=== PATIENT | male | born 1985 | race American Indian/Alaskan Native ===

== ENCOUNTER 2017-03-31 14:34 | Emergency (ER) | payer MEDICAID ==
[2017-03-31] MEDS ORDERED: Sodium Chloride 0.9% 10 ML Syringe FLUSH PRN (15:09)
[2017-03-31] MEDS ORDERED: Ondansetron 4 MG/2 ML SDV IVPUSH ONE (15:09)
[2017-03-31] MEDS ORDERED: fentaNYL 100 MCG/2 ML SDV IVPUSH ONE (15:09)
--- NOTE | 2017-03-31 15:13 | EDM.PDOC ---
ED HPI GENERAL MEDICAL PROBLEM - General Chief Complaint: Upper Extremity Injury/Pain Stated Complaint: Shoulder pain Time Seen by Provider: 03/31/17 15:00 Source of Information: Reports: Patient, RN Notes Reviewed History Limitations: Reports: No Limitations - History of Present Illness INITIAL COMMENTS - FREE TEXT/NARRATIVE: 32 year old male presents to the ED with left shoulder pain. He tripped and caught himself with his left arm. He felt a popping sensation to his left shoulder. He's dislocated this shoulder in the past and he says it feels the same way. He reports some tingling to his fingers. He's also had surgery on this shoulder in the past. He last ate around 10am. Left Shoulder Pain Score (Numeric/FACES): 10 - Related Data Allergies Allergy/AdvReac Type Severity Reaction Status Date / Time codeine Allergy Swelling Verified 03/31/17 14:54 ketorolac [From Toradol] Allergy Itching Verified 03/31/17 14:54 Home Meds: Home Meds Albuterol [Proventil HFA] 2 puff INH QID PRN #1 inhaler 03/31/17 [Rx] Albuterol [Ventolin Syrup 2 MG/5 ML] 1 dose INH DAILY PRN 03/31/17 [History] Gabapentin [Neurontin] 800 mg PO QID #20 tablet 03/31/17 [Rx] Gabapentin [Neurontin] 800 mg PO TID 03/31/17 [History] cloNIDine HCl [Catapres] 0.2 mg PO BEDTIME #5 tablet 03/31/17 [Rx] cloNIDine [Catapres] 0.5 mg PO DAILY 03/31/17 [History] oxyCODONE HCl/Acetaminophen [Percocet 5-325 mg Tablet] 1 each PO Q6H PRN #20 tablet 03/31/17 [Rx] Past Medical History Cardiovascular History: Reports: Hypertension Respiratory History: Reports: Asthma Psychiatric History: Reports: Anxiety, Depression - Past Surgical History Respiratory Surgical History: Reports: None Social & Family History - Tobacco Use Smoking Status *Q: Never Smoker Second Hand Smoke Exposure: No - Caffeine Use Caffeine Use: Reports: Coffee - Recreational Drug Use Recreational Drug Use: No Review of Systems - Review of Systems Review Of Systems: See Below Musculoskeletal: Reports: Shoulder Pain, Joint Swelling Skin: Reports: No Symptoms Neurological: Reports: Numbness, Tingling. Denies: Weakness ED EXAM, GENERAL - Physical Exam Exam: See Below Exam Limited By: No Limitations General Appearance: Alert, WD/WN, Moderate Distress Respiratory/Chest: No Respiratory Distress, Lungs Clear Cardiovascular: Regular Rate, Rhythm Extremities: Joint Swelling, Other (pain to left shoulder with palpation. mild swelling noted. CMS intact distally. Patient is guarded and unwilling to move left shoulder. ) Neurological: Alert, Normal Cognition, No Motor/Sensory Deficits Skin Exam: Warm, Dry, Intact Course - Vital Signs Last Recorded V/S: Last Vital Signs Temp 97.6 F 03/31/17 14:52 Pulse 93 03/31/17 14:52 Resp 20 03/31/17 14:52 BP 134/88 03/31/17 14:52 Pulse Ox 98 03/31/17 14:52 - Orders/Labs/Meds Orders: Active Orders 24 hr Category Date Time Status Peripheral IV Care [RC] . DIRECTED Care 03/31/17 15:10 Active Shoulder Comp Lt [CR] Stat Exams 03/31/17 15:09 Taken Sodium Chloride 0.9% [Saline Flush] Med 03/31/17 15:09 Active 10 ml FLUSH ASDIRECTED PRN Peripheral IV Insertion Adult [OM.PC] Stat Oth 03/31/17 15:09 Ordered Medication Orders Sodium Chloride (Saline Flush) 10 ml FLUSH ASDIRECTED PRN PRN Reason: Keep Vein Open Last Admin: 03/31/17 15:22 Dose: 10 ml Meds: Medications Generic Name Dose Route Start Last Admin Trade Name Freq PRN Reason Stop Dose Admin Sodium Chloride 10 ml 03/31/17 15:09 03/31/17 15:22 Saline Flush FLUSH 10 ml ASDIRECTED PRN Administration Keep Vein Open Discontinued Medications Generic Name Dose Route Start Last Admin Trade Name Freq PRN Reason Stop Dose Admin Fentanyl 50 mcg 03/31/17 15:09 03/31/17 15:18 Sublimaze IVPUSH 03/31/17 15:10 50 mcg ONETIME ONE Administration Hydromorphone HCl 1 mg 03/31/17 16:02 Dilaudid IVPUSH 03/31/17 16:03 ONETIME ONE Ondansetron HCl 4 mg 03/31/17 15:09 03/31/17 15:17 Zofran IVPUSH 03/31/17 15:10 4 mg ONETIME ONE Administration - Re-Assessments/Exams Free Text/Narrative Re-Assessment/Exam: Xray reviewed with Dr. Salinas. No bony abnormality or dislocation appreciated. Patient will be placed in a sling and instructed to f/u with Dr. Kitchen this week. Prescription provided for Percocet. The patient is also requesting refills of his home medications. He is requesting Albuterol inhaler, gabapentin 800mg PO QID, and Clonidine 0.2mg at bedtime. He is in town working and forgot his prescriptions. I reviewed the [place] [facility] Drug registry. He had 120 gabapentin filled on 03/25/17. He will be given small refills for his meds. He is from out of town but said his is bringing his medications from home. He was instructed to f/u in the clinic if he needs additional refills. Departure - Departure Time of Disposition: 16:02 Disposition: Home, Self-Care 01 Condition: Good Clinical Impression: Medication refill Shoulder injury Qualifiers: Encounter type: initial encounter Laterality: left Qualified Code(s): S49.92XA - Unspecified injury of left shoulder and upper arm, initial encounter - Discharge Information Prescriptions: Albuterol [Proventil HFA] 2 puff INH QID PRN #1 inhaler PRN Reason: Cough Gabapentin [Neurontin] 800 mg PO QID #20 tablet cloNIDine HCl [Catapres] 0.2 mg PO BEDTIME #5 tablet oxyCODONE HCl/Acetaminophen [Percocet 5-325 mg Tablet] 1 each PO Q6H PRN #20 tablet PRN Reason: Pain Referrals: PCP,None [Primary Care Provider] - Forms: ED Department Discharge, ED Return to Work/School Form Additional Instructions: Rest and ice your shoulder Sling as tolerated Follow-up with Dr. Kitchen on or Friday of this week. Call [phone] to schedule. You were given a 5 day supply of your home medications. Follow-up in our clinic if you need additional refills of your medications. Call [phone] to schedule. We have same and next day appointments available. - My Orders Last 24 Hours: My Active Orders 03/31/17 15:09 Shoulder Comp Lt [CR] Stat Sodium Chloride 0.9% [Saline Flush] 10 ml FLUSH ASDIRECTED PRN Peripheral IV Insertion Adult [OM.PC] Stat 03/31/17 15:10 Peripheral IV Care [RC] . DIRECTED - Assessment/Plan Last 24 Hours: My Active Orders 03/31/17 15:09 Shoulder Comp Lt [CR] Stat Sodium Chloride 0.9% [Saline Flush] 10 ml FLUSH ASDIRECTED PRN Peripheral IV Insertion Adult [OM.PC] Stat 03/31/17 15:10 Peripheral IV Care [RC] . DIRECTED
[2017-03-31] MEDS ORDERED: HYDROmorphone 1 MG/ML Syringe IVPUSH ONE (16:02)
--- NOTE | 2017-04-03 10:46 | CR ---
Left shoulder: Three views of the left shoulder were obtained. Slight ossification is noted within the coracoclavicular ligament. Glenohumeral joint is unremarkable. No acute fracture, dislocation or other bony abnormality is appreciated. Impression: 1. Incidental findings. Nothing acute is appreciated on three-view left shoulder study. Diagnostic code #2
== END 2017-03-31 16:41 | disposition home or self-care (01) ==
LOC: MERGE 14:34 → JD.ED 14:34
DX: S49.92XA Unspecified injury of left shoulder and upper arm, initial encounter (principal); Z76.0 Encounter for issue of repeat prescription; I10 Essential (primary) hypertension; J45.909 Unspecified asthma, uncomplicated; F41.9 Anxiety disorder, unspecified; F32.9 Major depressive disorder, single episode, unspecified; Z79.899 Other long term (current) drug therapy; Z88.5 Allergy status to narcotic agent; Z88.6 Allergy status to analgesic agent; W18.40XA Slipping, tripping and stumbling without falling, unspecified, initial encounter
CPT/HCPCS: 73030; 96374; 96375; 99284; J1170; J2405; J3010; J7050; 99283

== ENCOUNTER 2017-04-02 15:49 | Emergency (ER) | payer MEDICAID ==
[2017-04-02] MEDS ORDERED: Sodium Chloride 0.9% 10 ML Syringe FLUSH PRN (16:03)
[2017-04-02] MEDS ORDERED: HYDROmorphone 0.5 MG/0.5 ML Syringe IVPUSH ONE (16:03)
--- NOTE | 2017-04-02 16:09 | EDM.PDOC ---
ED HPI GENERAL MEDICAL PROBLEM - General Chief Complaint: Upper Extremity Injury/Pain Stated Complaint: LT SHOULDER INJURY Time Seen by Provider: 04/02/17 16:00 Source of Information: Reports: Patient History Limitations: Reports: No Limitations - History of Present Illness INITIAL COMMENTS - FREE TEXT/NARRATIVE: Patient is a 32-year-old male who presents to the ED complaining of left shoulder pain. Patient states on Friday night he was walking up a set of stairs and fell forward. He attempted to catch himself when doing so dislocated his left shoulder. Shoulder reduced on its own. He did present to the ED and received pain medications. States upon waking up this morning the Velcro broke to the shoulder immobilizer thus with movement caused left shoulder to dislocate again. He presented to the walk-in clinic to which x-rays were obtained revealing a dislocated left shoulder. This was reviewed by Dr. Kitchen to which he requested patient come to the ED to have it reduced. Last time the patient ate was at noon today. It was a light meal. Patient did take a Percocet tablet 11:00 for discomfort. Patient does have a history of rotator cuff tear to left shoulder surgically repaired 3 years ago. Patient has no numbness or tingling. Pain is localized. Left Shoulder Pain Score (Numeric/FACES): 9 - Related Data Allergies Allergy/AdvReac Type Severity Reaction Status Date / Time codeine Allergy Swelling Verified 04/02/17 16:02 ketorolac [From Toradol] Allergy Itching Verified 04/02/17 16:02 Home Meds: Home Meds Albuterol [Proventil HFA] 2 puff INH QID PRN #1 inhaler 03/31/17 [Rx] Albuterol [Ventolin Syrup 2 MG/5 ML] 1 dose INH DAILY PRN 03/31/17 [History] Gabapentin [Neurontin] 800 mg PO QID #20 tablet 03/31/17 [Rx] Gabapentin [Neurontin] 800 mg PO TID 03/31/17 [History] cloNIDine HCl [Catapres] 0.2 mg PO BEDTIME #5 tablet 03/31/17 [Rx] cloNIDine [Catapres] 0.5 mg PO DAILY 03/31/17 [History] oxyCODONE HCl/Acetaminophen [Percocet 5-325 mg Tablet] 1 each PO Q6H PRN #20 tablet 03/31/17 [Rx] Past Medical History Cardiovascular History: Reports: Hypertension Respiratory History: Reports: Asthma Psychiatric History: Reports: Anxiety, Depression - Past Surgical History Respiratory Surgical History: Reports: None Social & Family History - Tobacco Use Smoking Status *Q: Current Every Day Smoker Years of Tobacco use: 3 Packs/Tins Daily: 0.5 Second Hand Smoke Exposure: No - Caffeine Use Caffeine Use: Reports: Coffee, Energy Drinks, Soda - Recreational Drug Use Recreational Drug Use: No Review of Systems - Review of Systems Review Of Systems: ROS reveals no pertinent complaints other than HPI. ED EXAM, GENERAL - Physical Exam Exam: See Below Exam Limited By: No Limitations General Appearance: Alert, WD/WN, Mild Distress Ears: Hearing Grossly Normal Nose: Normal Inspection Throat/Mouth: Normal Voice, No Airway Compromise Neck: Normal Inspection, Supple Respiratory/Chest: No Respiratory Distress, Lungs Clear, Normal Breath Sounds, No Accessory Muscle Use Cardiovascular: Normal Peripheral Pulses, Regular Rate, Rhythm, No Murmur Peripheral Pulses: 2+: Radial (L) Extremities: Normal Capillary Refill, Other (On evaluation of the left shoulder there is squaring off noted. Pain with palpation. Decreased range of motion secondary discomfort. No sensory motor deficits distally.) Course - Vital Signs Last Recorded V/S: Last Vital Signs Temp 97.9 F 04/02/17 15:56 Pulse 100 04/02/17 18:10 Resp 18 04/02/17 18:10 BP 132/99 H 04/02/17 18:10 Pulse Ox 97 04/02/17 18:10 - Orders/Labs/Meds Meds: Medications Discontinued Medications Generic Name Dose Route Start Last Admin Trade Name Luanq PRN Reason Stop Dose Admin Hydromorphone HCl 0.5 mg 04/02/17 16:03 04/02/17 16:21 Dilaudid IVPUSH 04/02/17 16:04 0.5 mg ONETIME ONE Administration Sodium Chloride Confirm 04/02/17 16:18 04/02/17 16:23 Normal Saline Administered 04/02/17 16:19 75 ml Dose Administration 1,000 mls @ as directed .ROUTE .STK-MED ONE Ketamine HCl Confirm 04/02/17 17:15 Ketalar Administered 04/02/17 17:16 Dose 500 mg .ROUTE .STK-MED ONE Midazolam HCl Confirm 04/02/17 17:15 Versed 1 Mg/Ml Administered 04/02/17 17:16 Dose 2 mg .ROUTE .STK-MED ONE Sodium Chloride 10 ml 04/02/17 16:03 04/02/17 16:24 Saline Flush FLUSH 10 ml ASDIRECTED PRN Administration Keep Vein Open - Re-Assessments/Exams Free Text/Narrative Re-Assessment/Exam: X-ray of the left shoulder reveals a anterior dislocation of the left shoulder. IV will be established Dilaudid 0.5 mg IVP. We'll contact anesthesia for procedural sedation. Under conscious sedation the left shoulder was reduced with no complications. Postreduction film indicated shoulder was back in proper anatomical position. Patient had no sensory motor deficits distally. This includes median, ulnar, and also radial nerve. Shoulder immobilizer was placed. Patient is ready be discharged home. Vital signs stable. Patient is back to baseline. We'll discharge patient home with instructions as documented. He will follow-up with Dr. Kitchen in the next week. Departure - Departure Time of Disposition: 17:54 Disposition: Home, Self-Care 01 Condition: Good Clinical Impression: Dislocation, shoulder, anterior Qualifiers: Encounter type: initial encounter Laterality: left Qualified Code(s): S43.015A - Anterior dislocation of left humerus, initial encounter - Discharge Information Instructions: Shoulder Pain, [id number], Cast or Splint Care, [id number], Pain Medicine Instructions, [id number], Shoulder Dislocation, [id number] Referrals: PCP,None [Primary Care Provider] - Artis Kitchen MD [Physician] - Forms: ED Department Discharge Additional Instructions: Wear the shoulder immobilizer as instructed only taking it off to shower and change clothing. Do not externally rotate or lift your arm away from your body. This will only increase your risk of dislocating your shoulder again. Apply ice to affected area as needed. Utilize Tylenol and ibuprofen in alternating fashion for pain. For severe pain not managed with the above therapies take Percocet as prescribed. No driving this evening or consuming alcohol. No driving while taking the Percocet. Follow-up with Dr. Kitchen this coming week for reevaluation. Return to the ED as needed.
[2017-04-02] MEDS ORDERED: Sodium Chloride 0.9% 1,000 ML ONE (16:18)
[2017-04-02] MEDS ORDERED: Ketamine 500 mg/10 ML MDV ONE (17:15)
[2017-04-02] MEDS ORDERED: Midazolam 1 MG/ML 2 ML SDV ONE (17:15)
--- NOTE | 2017-04-02 17:35 | PCM48HPAN ---
Post Anesthesia Note - EVALUATION WITHIN 48HRS OF ANESTHETIC Vital Signs in Normal Range: Yes Patient Participated in Evaluation: Yes Respiratory Function Stable: Yes Airway Patent: Yes Cardiovascular Function Stable: Yes Hydration Status Stable: Yes Pain Control Satisfactory: Yes Nausea and Vomiting Control Satisfactory: Yes Mental Status Recovered: Yes
--- NOTE | 2017-04-02 17:38 | PCM.PREANE ---
Preanesthetic Assessment - Procedure Proposed Procedure: L shoulder dislocation - Anesthesia/Transfusion/Family Hx Anesthesia History: Prior Anesthesia Without Reaction Family History of Anesthesia Reaction: No Transfusion History: No Prior Transfusion(s) - Review of Systems General: No Symptoms Pulmonary: Other (asthma) Cardiovascular: Other (HTN) Gastrointestinal: No Symptoms Neurological: No Symptoms Other: Reports: Anxiety - Physical Assessment NPO Status Date: 04/02/17 NPO Status Time: 13:45 (milkshake) O2 Sat by Pulse Oximetry: 100 Respiratory Rate: 18 Vital Signs: Last Vital Signs Temp 36.6 C 04/02/17 15:56 Pulse 99 04/02/17 17:32 Resp 18 04/02/17 17:32 BP 140/114 H 04/02/17 17:32 Pulse Ox 100 04/02/17 17:32 Height: 1.73 m Weight: 76.204 kg ASA Class: 2E Mental Status: Alert & Oriented x3 Airway Class: Mallampati = 1 Dentition: Reports: Normal Dentition Thyro-Mental Finger Breadths: 3 Mouth Opening Finger Breadths: 3 ROM/Head Extension: Full Lungs: Clear to Auscultation, Normal Respiratory Effort Cardiovascular: Regular Rate, Regular Rhythm - Allergies Allergies/Adverse Reactions: Allergies Allergy/AdvReac Type Severity Reaction Status Date / Time codeine Allergy Swelling Verified 04/02/17 16:02 ketorolac [From Toradol] Allergy Itching Verified 04/02/17 16:02 - Blood Blood Available: No Product(s) Available: None - Anesthesia Plan Pre-Op Medication Ordered: None - Acknowledgements Anesthesia Type Planned: MAC (with ketamine and versed. Patient is not a candidate for propofol due to npo status. ) Pt an Appropriate Candidate for the Planned Anesthesia: Yes Alternatives and Risks of Anesthesia Discussed w Pt/Guardian: Yes Pt/Guardian Understands and Agrees with Anesthesia Plan: Yes PreAnesthesia Questionnaire Cardiovascular History: Reports: Hypertension Respiratory History: Reports: Asthma Psychiatric History: Reports: Anxiety, Depression - Past Surgical History Respiratory Surgical History: Reports: None - SUBSTANCE USE Smoking Status *Q: Current Every Day Smoker Tobacco Use Within Last Twelve Months: No Second Hand Smoke Exposure: No Recreational Drug Use History: No - HOME MEDS Home Medications: Home Meds Albuterol [Proventil HFA] 2 puff INH QID PRN #1 inhaler 03/31/17 [Rx] Albuterol [Ventolin Syrup 2 MG/5 ML] 1 dose INH DAILY PRN 03/31/17 [History] Gabapentin [Neurontin] 800 mg PO QID #20 tablet 03/31/17 [Rx] Gabapentin [Neurontin] 800 mg PO TID 03/31/17 [History] cloNIDine HCl [Catapres] 0.2 mg PO BEDTIME #5 tablet 03/31/17 [Rx] cloNIDine [Catapres] 0.5 mg PO DAILY 03/31/17 [History] oxyCODONE HCl/Acetaminophen [Percocet 5-325 mg Tablet] 1 each PO Q6H PRN #20 tablet 03/31/17 [Rx] - CURRENT (IN HOUSE) MEDS Current Meds: Current Medications Sodium Chloride (Saline Flush) 10 ml FLUSH ASDIRECTED PRN PRN Reason: Keep Vein Open Last Admin: 04/02/17 16:24 Dose: 10 ml Discontinued Medications Hydromorphone HCl (Dilaudid) 0.5 mg IVPUSH ONETIME ONE Stop: 04/02/17 16:04 Last Admin: 04/02/17 16:21 Dose: 0.5 mg Sodium Chloride (Normal Saline) Confirm Administered Dose 1,000 mls @ as directed .ROUTE .STK-MED ONE Stop: 04/02/17 16:19 Last Admin: 04/02/17 16:23 Dose: 75 ml Ketamine HCl (Ketalar) Confirm Administered Dose 500 mg .ROUTE .STK-MED ONE Stop: 04/02/17 17:16 Midazolam HCl (Versed 1 Mg/Ml) Confirm Administered Dose 2 mg .ROUTE .STK-MED ONE Stop: 04/02/17 17:16
--- NOTE | 2017-04-03 10:46 | CR ---
Left shoulder: Single AP view of the left shoulder was obtained. Comparison: Previous study performed earlier on the same day (3:15 PM). Stable ossification within the coracoclavicular ligament. Glenohumeral alignment is normal. Nothing acute is seen. Impression: 1. Incidental findings. Diagnostic code #2
== END 2017-04-02 18:10 | disposition home or self-care (01) ==
LOC: JD.ED 15:49 → MERGE 15:49 → JD.ED 18:10
DX: S43.015A Anterior dislocation of left humerus, initial encounter (principal); I10 Essential (primary) hypertension; J45.909 Unspecified asthma, uncomplicated; F41.9 Anxiety disorder, unspecified; F32.9 Major depressive disorder, single episode, unspecified; F17.210 Nicotine dependence, cigarettes, uncomplicated; Z79.899 Other long term (current) drug therapy; Z88.5 Allergy status to narcotic agent; Z88.6 Allergy status to analgesic agent; W10.8XXA Fall (on) (from) other stairs and steps, initial encounter; X58.XXXA Exposure to other specified factors, initial encounter
CPT/HCPCS: 23655; 73020; 73030; 96374; 99284; J1170; J2250; J7040; J7050; 01620

== ENCOUNTER 2017-09-19 17:37 | Emergency (ER) | payer MEDICAID ==
[2017-09-19] MEDS ORDERED: Acetaminophen 325 MG Tab PO ONE (18:18)
[2017-09-19] MEDS ORDERED: Acetaminophen/oxyCODONE 325-5 MG Tab PO ONE (19:23)
--- NOTE | 2017-09-19 19:50 | EDM.PDOC ---
ED HPI GENERAL MEDICAL PROBLEM - General Chief Complaint: Upper Extremity Injury/Pain Stated Complaint: MEDICAL CLEARANCE Time Seen by Provider: 09/19/17 18:05 Source of Information: Reports: Patient History Limitations: Reports: No Limitations - History of Present Illness INITIAL COMMENTS - FREE TEXT/NARRATIVE: 32-year-old male presents with the [facility] department for evaluation treatment of a dislocated left shoulder. Patient has been charged misdemeanor is currently under arrest. He states that he was in holding. He states that he lifted his arm he felt a pop. He feels that he may dislocated the shoulder. Reports numbness and tingling to the left arm. Reports he is previously dislocated shoulder. Also previously reports he had a left rotator cuff repair. Patient is right-handed. Onset: Today Location: Reports: Lower Extremity, Left Left Shoulder Pain Score (Numeric/FACES): 9 - Related Data Allergies Allergy/AdvReac Type Severity Reaction Status Date / Time codeine Allergy Swelling Verified 09/19/17 17:44 ketorolac [From Toradol] Allergy Itching Verified 09/19/17 17:44 Home Meds: Home Meds Acetaminophen/oxyCODONE [Percocet 325-5 MG] 1 tab PO Q6HR PRN #15 tab 09/19/17 [ Rx] Albuterol [IJP: Ventolin HFA] 2 puff INH .TWICE DAILY PRN 09/19/17 [History] cloNIDine [Catapres] 0.1 mg PO BID 09/19/17 [History] hydrOXYzine HCl [Atarax] 25 mg PO TID 09/19/17 [History] Past Medical History HEENT History: Reports: None Cardiovascular History: Reports: Hypertension Respiratory History: Reports: Asthma Gastrointestinal History: Reports: None Genitourinary History: Reports: None Musculoskeletal History: Reports: Fracture Neurological History: Reports: None Psychiatric History: Reports: Anxiety, Depression Endocrine/Metabolic History: Reports: None Hematologic History: Reports: None Immunologic History: Reports: None Oncologic (Cancer) History: Reports: None Dermatologic History: Reports: None - Infectious Disease History Infectious Disease History: Reports: None - Past Surgical History HEENT Surgical History: Reports: None Respiratory Surgical History: Reports: None GI Surgical History: Reports: None Endocrine Surgical History: Reports: None Musculoskeletal Surgical History: Reports: Other (See Below) Other Musculoskeletal Surgeries/Procedures:: shoulder dislocation Social & Family History - Family History Family Medical History: Noncontributory - Tobacco Use Smoking Status *Q: Current Every Day Smoker Years of Tobacco use: 4 Packs/Tins Daily: 0.5 Second Hand Smoke Exposure: No - Caffeine Use Caffeine Use: Reports: Coffee - Recreational Drug Use Recreational Drug Use: Yes Drug Use in Last 12 Months: Yes Recreational Drug Type: Reports: Methamphetamine Recreational Drug Use Frequency: Not Used In Over 3 Months Recreational Drug Last Use: 08-27-17 Review of Systems - Review of Systems Review Of Systems: See Below Musculoskeletal: Reports: Shoulder Pain (left). Denies: Joint Swelling Skin: Denies: Bruising Neurological: Reports: Numbness (left arm), Tingling (left arm) ED EXAM, GENERAL - Physical Exam Exam: See Below Exam Limited By: No Limitations General Appearance: Alert, WD/WN, No Apparent Distress Respiratory/Chest: No Respiratory Distress, Lungs Clear, Normal Breath Sounds Cardiovascular: Normal Peripheral Pulses, Regular Rate, Rhythm, No Murmur Peripheral Pulses: 2+: Radial (L), Radial (R) Extremities: Normal Capillary Refill, Limited Range of Motion (unable/unwilling to preform left shoulder ROM due to pain), Other (deformity to the left shoulder , humerus appears to be subluxed but does not seem dislocated) Neurological: Alert, Oriented, Normal Cognition Psychiatric: Normal Affect, Normal Mood Skin Exam: Warm, Dry. No: Ecchymosis Course - Vital Signs Last Recorded V/S: Last Vital Signs Temp 36.2 C 09/19/17 17:46 Pulse 75 09/19/17 17:46 Resp 18 09/19/17 17:46 BP 127/78 09/19/17 17:46 Pulse Ox 100 09/19/17 17:46 - Orders/Labs/Meds Meds: Medications Discontinued Medications Generic Name Dose Route Start Last Admin Trade Name Freq PRN Reason Stop Dose Admin Acetaminophen 650 mg 09/19/17 18:18 09/19/17 18:26 Tylenol PO 09/19/17 18:19 650 mg NOW ONE Administration Oxycodone/Acetaminophen 2 tab 09/19/17 19:23 09/19/17 19:30 Percocet 325-5 Mg PO 09/19/17 19:24 2 tab ONETIME ONE Administration - Radiology Interpretation Free Text/Narrative:: X-ray of the left shoulder does not show a dislocation. Does show subluxed left shoulder. He likely has rotator cuff injury that requires repair. Reviewed by myself and Dr. Salinas. - Re-Assessments/Exams Free Text/Narrative Re-Assessment/Exam: 09/19/17 19:41 I reviewed the x-ray results with the patient. Will place him in a sling and swath. reports that he will likely be bonded out tonight. If not he will see a brick tester on Friday. He is complaining of worsening pain. I will give him 2 Percocets here in the ER. I wrote prescription for some pain medication should he be bonded out nights. If not he can only have Tylenol and Motrin in fpc. He is to follow-up with orthopedics. Discharge instructions as documented. Departure - Departure Time of Disposition: 19:48 Disposition: Home, Self-Care 01 Condition: Fair Clinical Impression: Left rotator cuff tear - Discharge Information Prescriptions: Acetaminophen/oxyCODONE [Percocet 325-5 MG] 1 tab PO Q6HR PRN #15 tab PRN Reason: Pain Instructions: Rotator Cuff Injury Referrals: PCP,None [Primary Care Provider] - Artis Kitchen MD [Physician] - Forms: ED Department Discharge Additional Instructions: Sling and swath on at all times. [id number] Tylenol or Motrin seen for pain relief. For pain not relieved by Tylenol Motrin may take Percocet 1-2 tabs every 4-6 hours. Percocet is habit- forming, take as few of these as needed to control your pain. Do not drive or operate machinery within 12 hours of taking Percocet. Ice the shoulder. Follow-up with orthopedics next week. Recommend Dr. Kitchen. Call [phone] to schedule with him. please return to the ER for symptoms change or worsen.
--- NOTE | 2017-09-21 17:47 | CR ---
Left shoulder: Three views of the left shoulder were obtained. Comparison: Prior left shoulder study of 04/02/17 Humeral head is minimally subluxed inferiorly in relation to the glenoid. No terry dislocation is seen. Ossification is noted within the coracoclavicular ligament off the clavicle. Mild inferior spurring is seen within the acromioclavicular joint. Mild scoliosis is noted within the spine. Impression: 1. Slightly inferior subluxed humeral head without terry dislocation. 2. Other incidental findings. Diagnostic code #3
== END 2017-09-19 20:05 | disposition home or self-care (01) ==
LOC: JD.ED 17:37 → MERGE 17:37 → JD.ED 20:05
DX: S46.012A Strain of muscle(s) and tendon(s) of the rotator cuff of left shoulder, initial encounter (principal); Z88.5 Allergy status to narcotic agent; Z88.6 Allergy status to analgesic agent; I10 Essential (primary) hypertension; J45.909 Unspecified asthma, uncomplicated; X50.9XXA Other and unspecified overexertion or strenuous movements or postures, initial encounter
CPT/HCPCS: 73030; 99284; A9270; 99283

== ENCOUNTER 2017-09-24 15:01 | Emergency (ER) | payer MEDICAID ==
[2017-09-24] MEDS ORDERED: Sodium Chloride 0.9% 10 ML Syringe FLUSH PRN (15:30)
[2017-09-24] MEDS ORDERED: Acetaminophen 325 MG Tab PO ONE (15:34)
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
[2017-09-24] MEDS ORDERED: Ibuprofen 800 MG Tab PO ONE (16:20)
--- NOTE | 2017-09-25 08:44 | CR ---
Left shoulder: Three views of the left shoulder were obtained. Comparison: Previous left shoulder studies are available, most recent is 11/03/13. Minimal spurring is noted off the acromioclavicular joint. Slight inferior subluxation of the humerus relation to the glenoid is noted. No terry dislocation is seen. Slight irregularity within the glenoid rim is seen presumably due to previous surgery. Small bony exostosis with calcification seen off the inferior clavicle within the coracoclavicular ligament which is stable and incidental. No acute fracture or other abnormality is seen. Impression: 1. Inferior subluxation without terry dislocation of the glenohumeral joint. 2. Previous shoulder surgery appears to be present. 3. No acute fracture is seen. Diagnostic code #2
== END 2017-09-24 16:39 | disposition home or self-care (01) ==
LOC: JD.ED 15:01
DX: S43.032A Inferior subluxation of left humerus, initial encounter (principal); Z88.5 Allergy status to narcotic agent; F17.210 Nicotine dependence, cigarettes, uncomplicated; X58.XXXA Exposure to other specified factors, initial encounter
CPT/HCPCS: 73030; 99283; A9270

== ENCOUNTER 2021-10-03 03:29 | Emergency (ER) | payer MEDICAID, OTHER ==
[2021-10-03] MEDS ORDERED: Acetaminophen 325 MG Tab PO ONE (04:07)
== END 2021-10-03 05:15 ==
LOC: JD.ED 03:29
DX: R51.9 Headache, unspecified (principal); I10 Essential (primary) hypertension; J45.909 Unspecified asthma, uncomplicated; F17.200 Nicotine dependence, unspecified, uncomplicated; Z88.5 Allergy status to narcotic agent; Z88.6 Allergy status to analgesic agent
CPT/HCPCS: 36415; 80053; 80306; 80307; 82550; 83735; 84100; 85025; 99284; A9270

== ENCOUNTER 2021-10-03 15:38 | Emergency (ER) | payer OTHER ==
[2021-10-03] MEDS ORDERED: Ondansetron 4 MG Tab.DIS PO ONE (16:07)
[2021-10-03] MEDS ORDERED: LORazepam 2 MG/ML SDV IM ONE (16:07)
[2021-10-03 16:59] LABS: ACETAMINOPHEN 0 ug/mL (10-30)
== END 2021-10-03 18:10 | disposition home or self-care (01) ==
LOC: JD.ED 15:38
DX: F19.90 Other psychoactive substance use, unspecified, uncomplicated (principal); I10 Essential (primary) hypertension; J45.909 Unspecified asthma, uncomplicated; Z88.5 Allergy status to narcotic agent; Z88.6 Allergy status to analgesic agent; Z20.822 Contact with and (suspected) exposure to COVID-19
CPT/HCPCS: 36415; 80053; 80143; 80179; 80306; 80307; 84443; 85007; 85027; 87635; 93005; 96372; 99284; A9270; J2060; U0002

== ENCOUNTER 2021-10-06 12:54 | Emergency (ER) | payer SELFPAY ==
[2021-10-06] MEDS ORDERED: LORazepam 2 MG/ML SDV IM ONE (13:42)
[2021-10-06 14:41] LABS: ACETAMINOPHEN 0 ug/mL (10-30)
== END 2021-10-06 17:15 ==
LOC: JD.ED 12:54
DX: T14.91XA Suicide attempt, initial encounter (principal); I10 Essential (primary) hypertension; Z72.0 Tobacco use; Z20.822 Contact with and (suspected) exposure to COVID-19; Z79.899 Other long term (current) drug therapy; Z88.8 Allergy status to other drugs, medicaments and biological substances
CPT/HCPCS: 36415; 72040; 80053; 80143; 80179; 80306; 80307; 81003; 84443; 85025; 87635; 93005; 96372; 99285; J2060; U0002

== ENCOUNTER 2023-10-05 14:17 | Emergency (ER) | payer MEDICAID, OTHER ==
[2023-10-05 15:28] LABS: BASOPHILS ABSOLUTE AUTO 0.1 K/mm3 (0.0-0.2); BASOPHILS PERCENT AUTO 1.3 % (0.0-1.0); EOSINOPHILS ABSOLUTE AUTO 1.3 K/mm3 (0.0-0.4); HEMATOCRIT 43.6 % (42.0-52.0); HEMOGLOBIN 14.1 gm/dl (14.0-18.0); IMMATURE GRAN ABSOLUTE AUTO 0.05 K/mm3 (0.00-0.05); IMMATURE GRAN PERCENT AUTO 0.5 % (0.0-0.4); LYMPHOCYTES ABSOLUTE AUTO 2.7 K/mm3 (1.0-4.8); LYMPHOCYTES PERCENT AUTO 25.5 % (24.0-44.0); MEAN CORPUSCULAR HEMOGLOBIN 27.2 pg (28.0-32.0); MEAN CORPUSCULAR HGB CONC 32.3 g/dl (32.0-36.0); MEAN PLATELET VOLUME 8.6 fl (9.4-12.4); MONOCYTES ABSOLUTE AUTO 1.1 K/mm3 (0.0-0.8); MONOCYTES PERCENT AUTO 10.4 % (0.0-8.0); NEUTROPHILS ABSOLUTE AUTO 5.2 K/mm3 (1.8-7.7); NEUTROPHILS PERCENT AUTO 50.3 % (41.0-71.0); PLATELET COUNT,PLT 311 K/mm3 (150-400); RED BLOOD CELL COUNT 5.19 M/mm3 (4.52-5.90)
[2023-10-05 15:59] LABS: A/G RATIO 0.9 (1-2); ALBUMIN 3.4 g/dl (3.4-5.0); ANION GAP 10.8 (5-15); BILIRUBIN TOTAL 0.3 mg/dL (0.2-1.0); BUN/CREATININE RATIO 13.3 (14-18); CALCIUM 8.4 mg/dL (8.5-10.1); CREATININE 0.9 mg/dL (0.7-1.3); EST CRCL DRUG DOSING (CG) 109.78 mL/min; POTASSIUM,K 3.8 mEq/L (3.5-5.1); PROTEIN TOTAL,TP 7.1 g/dl (6.4-8.2); TSH 0.69 uIU/mL (0.358-3.74)
[2023-10-05] MEDS: LORazepam 0.5 MG Tab PO ONE (17:09)
[2023-10-05 17:12] LABS: BARBITURATE SCREEN,URINE NEGATIVE (CUTOFF=200); BENZODIAZEPINES SCREEN,URINE NEGATIVE (CUTOFF=150); BUPRENORPHINE SCREEN,URINE PRESUMPTIVE POSITIVE (CUTOFF=10); METHADONE SCREEN, URINE NEGATIVE (CUT0FF=200); METHAMPHETAMINES SCREEN, URINE PRESUMPTIVE POSITIVE (CUTOFF=500); OXYCODONE SCREEN,URINE NEGATIVE (CUT0FF=100); THC SCREEN,URINE 20 NG/ML NEGATIVE (CUTOFF=50)
[2023-10-05 17:16] LABS: AMPHETAMINES SCREEN, URINE PRESUMPTIVE POSITIVE (CUTOFF=500)
== END 2023-10-05 20:14 | disposition home or self-care (01) ==
LOC: JD.ED 14:17
DX: R44.0 Auditory hallucinations (principal); F15.10 Other stimulant abuse, uncomplicated; I10 Essential (primary) hypertension; F17.210 Nicotine dependence, cigarettes, uncomplicated; Z88.8 Allergy status to other drugs, medicaments and biological substances; Z79.899 Other long term (current) drug therapy; Z86.16 Personal history of COVID-19
CPT/HCPCS: 36415; 80053; 80143; 80179; 80306; 80307; 84443; 85025; 93005; 99285; A9270